=== PATIENT | male | born 1975 | race Caucasian/White ===

== ENCOUNTER 2023-03-10 12:28 | Outpatient (AMB) | payer OTHER, SELFPAY ==
[2023-03-10 12:35] VITALS: BP 138/80; PULSE 95; O2SAT 96; BMI 29.0
--- NOTE | 2023-03-10 12:35 | A.OFFPC_ITS ---
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 He will receive the influenza vaccine today in office. It has been educated that he can retain COVID booster from his pharmacy. He is due for colonoscopy, will offer. Will draw labs including PSA. Patient has a chief complaint of right inguinal discomfort over the past couple weeks. Patient states that he was exercising on a the bike and has noticed some discomfort in the right groin area. He does not describe the feeling as pain, he feels like there is something hard in his groin area. Denies any trauma to the area, denies hearing any tearing or popping. Patient states that he has rested the area over the past 2 weeks and has seen little improved. Denies tingling and numbness. [facility] Family History (Updated 03/10/23 @ 13:14 by CAROLYN Phillips) Mother Multiple myeloma Social History Housing: House Patient Tobacco Use Status: Never used Tobacco e-Cigarette/Vaping Use: Never Used service: No Current occupational status: employed Cognitive needs: No Hearing needs: No Vision needs: Yes Questionnaire PHQ-9 Over the last 2 weeks, how often have you been bothered by any of the following problems? [id number] - PHQ-9 Billing: Patient declined-do not bill Source: Developed by Drs. Justen Lomas, Rosa Abel, Cm Fountain and colleagues, with an educational yarely from [employer]. Thrive Questionnaire Date Thrive assessed: 03/10/23 I am a: Patient What is your living situation today?: I have a steady place to live Within the past 12 months, did the food you bought not last and you didn't have the money to get more?: Never true Within the past 12 months, did you worry whether your food would run out before you got money to buy more?: Never true Do you have trouble paying for medicines?: No Do you have trouble getting transportation to medical appointments?: No Do you have trouble paying your heating and electricity bill?: No Do you have trouble taking care of your child, family member or friend?: Yes Do you have trouble with day-to-day activities such as bathing, preparing meals, shopping, managing finances, etc.?: No Are you currently unemployed and looking for a job?: No Are you interested in more education?: No THRIVE Score: 0 AUDIT C Alcohol Use Questionnaire (AUDIT-C) 1. How often do you have a drink containing alcohol?: Never 3. How often do you have six or more drinks on one occasion?: Never Total Score: 0 Score Reviewed/Action Taken: Yes MARY CARMEN-7 AMB Questionnaire MARY CARMEN-7 Date MARY CARMEN - 7 assessed: 03/10/23 Source: Developed by Drs. Justen Lomas, Rosa Abel, Cm Fountain and colleagues, with an educational yarely from [employer]. MARY CARMEN-7 Assessment Billing MARY CARMEN-7 Assessment Tool: pt declined-do not bill Review of Systems Const All systems reviewed & are unremarkable except as noted in HPI and below Physical exam (Primary Care) Vital Signs: Last Vital Signs Pulse 95 03/10/23 12:35 BP 138/80 03/10/23 12:35 Pulse Ox 96 03/10/23 12:35 Oxygen Delivery Method Room Air 03/10/23 12:35 Care Plan Goal for BP management: Vital signs reviewed stable BMI result Body Mass Index 29.0 Tobacco/Smoking Status: Tobacco use Status Tobacco use date assessed 03/10/23 03/10/23 12:37 Patient Tobacco Use Status Never used Tobacco 03/10/23 12:38 e-Cigarette/Vaping Use Never Used 03/10/23 12:38 Thrive Assessment: Date of Thrive Assessment Date Thrive assessed 03/10/23 03/10/23 13:23 Const Other: Appearance: Alert.? Oriented X3.? No acute distress.? Head: Normocephalic, atraumatic, no step-offs or deformities Eyes: Pupils equal, round and reactive to light.? ENT: Pharynx normal.?TM intact, pearly schumacher. Neck: Normal inspection.? Neck supple.?Full ROM. No thyroid nodule. CVS: Normal heart rate and rhythm.? Pulses normal.? Respiratory: No respiratory distress.? Breath sounds normal.? Abdomen: Soft and nontender.?Patient has slight bulge when coughing, right side groin. Skin: Skin warm and dry.? Normal skin color.? Normal skin turgor.? Extremities: No lower extremity edema.? No calf ttp. 5/5 strength to bilateral upper and lower extremities Back: No midline tenderness, no C-spine tenderness, full range of motion, no CVA tenderness bilaterally Neuro: Oriented X 3.? No motor deficit.? No sensory deficit. CN 2-12 intact Office Procedures Flu Questionnaire Does the patient have a severe egg allergy?: No Does the patient have severe life threatening allergies?: No Does the patient have a fever or illness today?: No Has the patient ever had Guillain-Hamel Syndrome?: No Has the patient ever had any past reaction to a flu shot?: No Immunizations flu vacc [id number] 6mos up(PF) 60 mcg(15 mcgx4)/0.5 mL IM syringe Performing Provider: CAROLYN Phillips Performing Location: [facility] Administered by: Minnie Nunez CMA on 03/10/23 13:19 Dose Route Admin Location Dispensed Lot Number Expiration Date 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 Assessment and Plan Assessment & Plan (1) Hypertension: Comment: Patient is currently taking medication for hypertension. He will take blood pressure measurements at home report the values to the office. Code(s): I10 - Essential (primary) hypertension Qualifiers: Hypertension type: primary hypertension Qualified Code(s): I10 - Essential (primary) hypertension (2) Discomfort of right groin: Comment: Will order ultrasound. Patient can take [id number] Motrin for discomfort. Patient has been educated on side effects of these medications. Patient has been educated on signs of worsening symptoms when to report to the office or when to present to the ED. Code(s): R10.31 - Right lower quadrant pain Plan: Take your medications as prescribed. If you were prescribed antibiotics today, it is important that you take your medication to their entirety, do not skip any doses, do not finish them early. Follow-up with your primary care provider this week. Return to the emergency department with new or worsening symptoms. Such as fevers, chills, chest pain, shortness of breath, nausea, vomiting, dizziness, headache, vision changes, lethargy In case of emergency call 911 (3) Encounter for routine adult physical exam with abnormal findings: Comment: Will draw labs to get back to patient with results. Will get back to patient with ultrasound results. Code(s): Z00.01 - Encounter for general adult medical examination with abnormal findings Plan Will follow-up with imaging results. Orders: Orders PSA,Total (Free>4and<10) 03/10/23 Z12.5 - Encounter for screening for malignant neoplasm of prostate Lipid Panel 03/10/23 E78.5 - Hyperlipidemia, unspecified Vitamin D 25-OH (D2 and D3) 03/10/23 Z13.21 - Encounter for screening for nutritional disorder Vitamin B12 03/10/23 Z13.21 - Encounter for screening for nutritional disorder TSH reflex Free T4 03/10/23 E03.9 - Hypothyroidism, unspecified Complete Blood Count Auto Diff 03/10/23 Z13.0 - Encounter for screening for diseases of the blood and blood-forming organs and certain disorders involving the immune mechanism US abdomen limited 03/10/23 R10.31 - Right lower quadrant pain Influenza [id number] Immunization 03/10/23 Z23 - Encounter for immunization Vitamin B6 03/10/23 Z13.21 - Encounter for screening for nutritional disorder UA CC w/rflx Micro + Cult 03/10/23 E86.0 - Dehydration Comprehensive Met. Panel 03/10/23 Z91.89 - Other specified personal risk factors, not elsewhere classified Referrals Gastroenterology Referral Z12.11 - Encounter for screening for malignant neoplasm of colon Coding Level of Care Code New Pt Level 4 (05846) New Pt Prev Care 40-64y(51924) Diagnoses Primary hypertension I10 Hypertension type: primary hypertension Discomfort of right groin R10.31 Encounter for routine adult physical exam with abnormal findings Z00.01 Time Spent (min) 45
== END 2023-03-10 13:25 | disposition home or self-care (01) ==
PROVIDERS: Visit Provider Nurse Practitioner Primary Care
DX: I10 Essential (primary) hypertension (principal); R10.31 Right lower quadrant pain; Z00.01 Encounter for general adult medical examination with abnormal findings; Z23 Encounter for immunization
CPT/HCPCS: 90471; 90686; 99204; 99386

== ENCOUNTER 2023-03-23 10:12 | Outpatient (REF) | payer OTHER, SELFPAY ==
[2023-03-23 13:09] LABS: MANUAL DIFF FLAG NO
[2023-03-23 13:20] LABS: Basophils Percent Auto 0.6 % (0-2); Eosinophils Absolute Auto 0.2 X10*3/uL (0.0-0.4); Eosinophils Percent Auto 3.2 % (0-4); Hematocrit 41.7 % (42.0-52.0); Hemoglobin 13.9 g/dl (14.0-18.0); Imm Gran Abs Auto 0.02 X10*3/uL (0.00-0.03); Imm Gran Pct Auto 0.4 % (0.0-0.4); Lymphocytes Absolute Auto 1.9 X10*3/uL (1.2-4.9); Lymphocytes Percent Auto 37.3 % (20-40); Mean Corpuscular HGB Conc 33.3 g/dl (31.0-36.0); Mean Corpuscular Hemoglobin 29.9 pg (27.0-33.0); Mean Corpuscular Volume 89.7 fL (80.0-98.0); Mean Platelet Volume 10.3 fL (9.4-12.4); Monocytes Absolute Auto 0.3 X10*3/uL (0.1-1.2); Neutrophils Absolute Auto 2.6 x10*3/uL (2.0-8.3); Neutrophils Percent Auto 52.5 % (45-73); Platelet Count 288 X10*3/uL (160-400); Red Blood Count 4.65 X10*6/uL (4.60-5.80); Red Cell Distribution Width 12.3 % (11.0-16.0)
[2023-03-23 13:37] LABS: Alanine Aminotransferase 22 U/L (0-40); Albumin Level 4.1 g/dL (3.5-5.0); Alkaline Phosphatase 53 U/L (39-117); Anion Gap 12 (12-20); Aspartate Amino Transferase 24 U/L (5-37); Bilirubin Total 0.5 mg/dL (0.0-1.0); Blood Urea Nitrogen 17 mg/dL (9-16); Calcium 9.3 mg/dL (8.4-10.2); Carbon Dioxide 24 mmol/L (22-29); Chloride 108 mmol/L (96-108); Cholesterol 205 mg/dL (<200); Estimated Glomerular Filt Rate > 60; Glucose Random 94 mg/dL (60-115); HDL Cholesterol 46 mg/dL (>40); LDL Cholesterol Calculated 141 mg/dL (<100); Potassium 4.2 mmol/L (3.3-5.1); Sodium 140 mmol/L (135-145); Total Protein 7.3 g/dL (6.5-8.0); Triglycerides 94 mg/dL (<150)
[2023-03-23 13:48] LABS: PSA,Total (Free>4and<10) 0.86 ng/mL (0.00-4.00)
[2023-03-23 13:51] LABS: Appearance Urine Clear; Color Urine Yellow; Glucose Urine UA Negative (Negative); Leukocyte Esterase Urine Negative (Negative); Nitrite Urine Negative (Negative); PH 6.5 (5.0-9.0); Urine Blood Negative (Negative); Urine Ketones Negative (Negative); Urine Protein Negative (Neg-Trace)
[2023-03-23 13:54] LABS: Vitamin B12 896 pg/mL (200-900)
[2023-03-23 13:55] LABS: TSH reflex Free T4 1.59 uIU/mL (0.32-4.0)
[2023-03-26 13:09] LABS: Vitamin D 25-OH, D2 <4 ng/mL; Vitamin D 25-OH, D3 15 ng/mL; Vitamin D 25-OH, Total 15 ng/mL (30-100)
[2023-03-29 15:44] LABS: Vitamin B6 25.1 ng/mL (2.1-21.7)
== END 2023-03-23 10:13 | disposition home or self-care (01) ==
LOC: HO.HMGCLDS 10:12
PROVIDERS: PCP Internal Medicine; Visit Provider Nurse Practitioner Primary Care
DX: Z13.21 Encounter for screening for nutritional disorder (principal); Z13.0 Encounter for screening for diseases of the blood and blood-forming organs and certain disorders involving the immune mechanism; Z12.5 Encounter for screening for malignant neoplasm of prostate; E78.5 Hyperlipidemia, unspecified; E03.9 Hypothyroidism, unspecified; E86.0 Dehydration; Z91.89 Other specified personal risk factors, not elsewhere classified
CPT/HCPCS: 36415; 80053; 80061; 81003; 82306; 82607; 84153; 84207; 84443; 85025

== ENCOUNTER 2023-04-14 13:09 | Outpatient (REF) | payer OTHER, SELFPAY ==
--- NOTE | ~2023-04-14 | US_ITS ---
EXAMINATION: US PELVIC/RIGHT INGUINAL REGION, LIMITED/FOLLOW UP CLINICAL INFORMATION: Right lower quadrant pain, rule out hernia. COMPARISON: None available. TECHNIQUE: Targeted ultrasound images were obtained by the district court reporter of the area of concern as indicated by the patient in the right lower quadrant/inguinal region. Radiologist was not in attendance. Images were later provided for interpretation. FINDINGS: No gross hernia identified in the area of concern indicated by the patient in the right inguinal region. There is a 1.0 x 0.4 x 0.5 cm lymph node with echogenic hilum in the area indicated by the patient to the right inguinal region. US/US pelvic limited IMPRESSION: 1. No gross hernia identified in the area of concern indicated by the patient the right inguinal region. CT scan of the abdomen and pelvis could be considered for further evaluation based on the clinical assessment. 2. There is a 1.0 x 0.4 x 0.5 cm lymph node with echogenic hilum in the area indicated by the patient to the right inguinal region.
== END 2023-04-14 13:10 | disposition home or self-care (01) ==
LOC: HO.HMGCX 13:09
PROVIDERS: PCP Nurse Practitioner Primary Care; Visit Provider Nurse Practitioner Primary Care
DX: R10.31 Right lower quadrant pain (principal)
CPT/HCPCS: 76857